=== PATIENT | female | born 1970 | race Caucasian/White ===

== ENCOUNTER 2019-11-20 07:11 | Day surgery (SDC) | payer BC ==
[~2019-11-20 07:11] MED LIST: Sodium Chloride 0.9% 10 ML SDV IV PRN; Sodium Chloride 0.9% 10 ML Syringe FLUSH PRN; Sodium Chloride 0.9% 2.5 ML Syringe FLUSH PRN
[2019-11-20] MEDS ORDERED: Lactated Ringers 1,000 ML IV SCH (07:45)
--- NOTE | 2019-11-20 08:35 | PCM.PREANE ---
Preanesthetic Assessment - Anesthesia/Transfusion/Family Hx Anesthesia History: Prior Anesthesia Without Reaction Family History of Anesthesia Reaction: No Transfusion History: No Prior Transfusion(s) Intubation History: Unknown - Review of Systems General: No Symptoms Pulmonary: No Symptoms Cardiovascular: No Symptoms Gastrointestinal: No Symptoms Neurological: No Symptoms Other: Reports: None - Physical Assessment NPO Status Date: 11/19/19 NPO Status Time: 21:00 Vital Signs: Last Vital Signs Temp 36.4 C 11/20/19 07:20 Pulse 77 11/20/19 07:20 Resp 16 11/20/19 07:20 BP 117/73 11/20/19 07:20 Pulse Ox 98 11/20/19 07:20 Height: 5 ft 3 in Weight: 59.421 kg ASA Class: 2 Mental Status: Alert & Oriented x3 Airway Class: Mallampati = 2 Dentition: Reports: Normal Dentition Thyro-Mental Finger Breadths: 3 Mouth Opening Finger Breadths: 3 ROM/Head Extension: Full Lungs: Clear to Auscultation, Normal Respiratory Effort Cardiovascular: Regular Rate, Regular Rhythm - Lab Values: Laboratory Last Values WBC 7.83 K/uL (4.0-11.0) 11/20/19 07:30 RBC 4.24 M/uL (4.30-5.90) L 11/20/19 07:30 Hgb 12.7 g/dL (12.0-16.0) 11/20/19 07:30 Hct 38.6 % (36.0-46.0) 11/20/19 07:30 MCV 91.0 fL (80.0-98.0) 11/20/19 07:30 MCH 30.0 pg (27.0-32.0) 11/20/19 07:30 MCHC 32.9 g/dL (31.0-37.0) 11/20/19 07:30 RDW Std Deviation 44.3 fl (28.0-62.0) 11/20/19 07:30 RDW Coeff of Sobeida 13 % (11.0-15.0) 11/20/19 07:30 Plt Count 283 K/uL (150-400) 11/20/19 07:30 MPV 11.20 fL (7.40-12.00) 11/20/19 07:30 Nucleated RBC % 0.0 /100WBC 11/20/19 07:30 Nucleated RBCs # 0 K/uL 11/20/19 07:30 HCG, Qual NEGATIVE (NEG) 11/20/19 07:30 - Allergies Allergies/Adverse Reactions: Allergies Allergy/AdvReac Type Severity Reaction Status Date / Time No Known Allergies Allergy Verified 11/17/19 12:04 - Blood Blood Available: No - Anesthesia Plan Pre-Op Medication Ordered: None - Acknowledgements Anesthesia Type Planned: General Anesthesia Pt an Appropriate Candidate for the Planned Anesthesia: Yes Alternatives and Risks of Anesthesia Discussed w Pt/Guardian: Yes Pt/Guardian Understands and Agrees with Anesthesia Plan: Yes PreAnesthesia Questionnaire HEENT History: Reports: None Cardiovascular History: Reports: None Respiratory History: Reports: Asthma (very mild) Gastrointestinal History: Reports: None Genitourinary History: Reports: None WEB PROJECT MANAGER History: Reports: Dysfunctional Uterine Bleeding Musculoskeletal History: Reports: None Neurological History: Reports: None Psychiatric History: Reports: None Endocrine/Metabolic History: Reports: Hypothyroidism Hematologic History: Reports: None Immunologic History: Reports: None Oncologic (Cancer) History: Reports: None Dermatologic History: Reports: None - Past Surgical History Head Surgeries/Procedures: Reports: None HEENT Surgical History: Reports: None Cardiovascular Surgical History: Reports: None Respiratory Surgical History: Reports: None GI Surgical History: Reports: Colonoscopy Female Surgical History: Reports: Breast Implant, D&C Other Female Surgeries/Procedures: ESSURE Endocrine Surgical History: Reports: Thyroidectomy Other Endocrine Surgeries/Procedures: partial thyroidectomy Neurological Surgical History: Reports: None Musculoskeletal Surgical History: Reports: None Oncologic Surgical History: Reports: None Dermatological Surgical History: Reports: None - SUBSTANCE USE Smoking Status *Q: Never Smoker Recreational Drug Use History: No - HOME MEDS Home Medications: Home Meds Albuterol Sulfate [Proair Hfa] 2 puff INH Q4H PRN 11/17/19 [History] Fluticasone/Vilanterol [Breo Ellipta 100-25 MCG Inhalation Kit] 1 inhalation INH ASDIRECTED PRN 11/17/19 [History] Levothyroxine [Synthroid] 50 mcg PO DAILY 11/17/19 [History] - CURRENT (IN HOUSE) MEDS Current Meds: Current Medications Lactated Ringer's (Ringers, Lactated) 1,000 mls @ 100 mls/hr IV ASDIRECTED MILENA Last Admin: 11/20/19 07:47 Dose: 100 mls/hr Sodium Chloride (Saline Flush) 10 ml FLUSH ASDIRECTED PRN PRN Reason: Keep Vein Open Sodium Chloride (Saline Flush) 2.5 ml FLUSH ASDIRECTED PRN PRN Reason: Keep Vein Open Sodium Chloride (Normal Saline) 10 ml IV ASDIRECTED PRN PRN Reason: IV Use
[2019-11-20] MEDS ORDERED: Lidocaine 2% 5 ML SDV ONE (08:51)
[2019-11-20] MEDS ORDERED: Ketorolac 30 MG/ML SDV ONE (08:51)
[2019-11-20] MEDS ORDERED: Ondansetron 4 MG/2 ML SDV ONE (08:51)
[2019-11-20] MEDS ORDERED: Midazolam 1 MG/ML 2 ML SDV ONE (08:51)
[2019-11-20] MEDS ORDERED: fentaNYL 100 MCG/2 ML SDV ONE (08:52)
[2019-11-20] MEDS ORDERED: Propofol 200 MG/20 ML SDV ONE (08:58)
--- NOTE | 2019-11-20 10:00 | PCM.OPNOTE ---
- General Post-Op/Procedure Note Date of Surgery/Procedure: 11/20/19 Operative Procedure(s): Diagnostic hysteroscopy with D&C, thermal endometrial ablation Findings: Normal endometrial cavity Pre Op Diagnosis: menorrhagia Post-Op Diagnosis: Same Anesthesia Technique: General LMA Primary Surgeon: Inessa Coon Pathology: endometrial curretings Fluid Replacement, Intraop: 1,200 EBL in mLs: 5 Complications: none known Condition: Stable Free Text/Narrative:: Dictation [id number]
--- NOTE | 2019-11-20 10:24 | PCM.POSTAN ---
POST ANESTHESIA ASSESSMENT - MENTAL STATUS Mental Status: Alert, Oriented - VITAL SIGNS Vital Signs: Last Vital Signs Temp 36.4 C 11/20/19 09:57 Pulse 69 11/20/19 10:17 Resp 9 L 11/20/19 10:17 BP 133/68 11/20/19 10:17 Pulse Ox 100 11/20/19 10:17 - RESPIRATORY Respiratory Status: Respiratory Rate WNL, Airway Patent, O2 Saturation Stable - CARDIOVASCULAR CV Status: Pulse Rate WNL, Blood Pressure Stable - GASTROINTESTINAL GI Status: No Symptoms - PAIN Pain Score: 0 - POST OP HYDRATION Hydration Status: Adequate & Stable - OBSERVATIONS Free Text/Narrative:: No anesthesia problems.
--- NOTE | 2019-11-20 10:49 | OR ---
SURGEON: Inessa Coon M.D. DATE OF PROCEDURE: 11/20/2019 PREOPERATIVE DIAGNOSIS: Menorrhagia. POSTOPERATIVE DIAGNOSIS: Menorrhagia. PROCEDURE: Diagnostic hysteroscopy with D and C, thermal endometrial ablation. PRIMARY SURGEON: Inessa Coon MD. ANESTHESIA: General LMA. ESTIMATED BLOOD LOSS: Less than 5 mL. COMPLICATIONS: None known. FINDINGS: Normal endometrial cavity. FLUIDS: 1200 mL of crystalloid. FLUID DEFICIT: 40 mL of saline with hysteroscope. DISPOSITION: The patient to PACU, stable; specimen to pathology. PROCEDURE DETAILS: Dai is a 49-year-old female who has ongoing difficulties with menorrhagia. She has permanent control, and at this time after discussing the options, she would like to proceed with surgical intervention in the form of endometrial ablation. Risks of procedure have been discussed. Proper consent obtained. The patient was then taken to the operating room where she underwent general LMA, was placed in modified dorsal lithotomy position, was prepped and draped in the usual sterile fashion. Bladder was drained. Time-out was performed. Speculum was introduced in the vagina. Anterior lip of the cervix was grasped with an Allis clamp. Hysteroscope was introduced in the endometrial cavity using normal saline as distention media. I was able to visualize left ostia, right ostia, fundus, lower uterine segment, endocervical canal. No intracavitary lesions were visualized and cavity appeared normal. Fluid deficit was approximately 40 mL. Hysteroscope was now removed. The cervix was gently dilated to 6 mm. A gentle curettage of endometrium was performed. Specimen to pathology. Using Mira device, the device was prepped according to early morning babysitter protocol, the cervix sounded to approximately 4 cm. The device was introduced into the endometrial cavity. Balloon insufflated, arms released. Integrity test was performed and passed successfully. This was followed by a 120-second ablative process. At the completion of this, the balloon was desufflated, the arms were involuted, and the device was removed from the endometrial cavity. Hemostasis appeared evident. All instruments removed from the vagina. Sponge count was correct. The patient will go to PACU in stable condition, specimen to pathology. HI / JENNY /[id number]
--- NOTE | 2019-11-20 10:59 | PCM48HPAN ---
Post Anesthesia Note - EVALUATION WITHIN 48HRS OF ANESTHETIC Vital Signs in Normal Range: Yes Patient Participated in Evaluation: Yes Respiratory Function Stable: Yes Airway Patent: Yes Cardiovascular Function Stable: Yes Hydration Status Stable: Yes Pain Control Satisfactory: Yes Nausea and Vomiting Control Satisfactory: Yes Mental Status Recovered: Yes Vital Signs: Last Vital Signs Temp 36.6 C 11/20/19 10:23 Pulse 69 11/20/19 10:23 Resp 9 L 11/20/19 10:23 BP 133/68 11/20/19 10:23 Pulse Ox 100 11/20/19 10:23 - COMMENTS/OBSERVATIONS Free Text/Narrative:: no anesthesia problems
== END 2019-11-20 10:58 | disposition home or self-care (01) ==
LOC: MW.SDS 07:11
PROVIDERS: ATTEND Obstetrics & Gynecology
DX: N92.0 Excessive and frequent menstruation with regular cycle (principal); J45.909 Unspecified asthma, uncomplicated; E03.9 Hypothyroidism, unspecified; Z79.51 Long term (current) use of inhaled steroids
CPT/HCPCS: 36415; 58563; 84703; 85027; J1885; J2001; J2250; J2405; J2704; J3010; J7120; 88305

== ENCOUNTER 2025-03-05 06:27 | Day surgery (SDC) | payer BC ==
[2025-03-05] MEDS ORDERED: Scopalamine 1mg/3day Transdermal Patch TOP ONE (06:30)
[2025-03-05] MEDS: Lactated Ringers 1,000 ML IV SCH (06:58)
[2025-03-05] MEDS ORDERED: Propofol 200 MG/20 ML SDV ONE (07:22)
[2025-03-05] MEDS ORDERED: fentaNYL 100 MCG/2 ML SDV ONE (07:22)
[2025-03-05] MEDS ORDERED: Midazolam 1 MG/ML 2 ML SDV ONE (07:23)
[2025-03-05] MEDS ORDERED: Lidocaine 1% 20 ML MDV ONE (07:24)
[2025-03-05] MEDS ORDERED: Bupivacaine 0.5% 10 ML SDV ONE (07:24)
[2025-03-05] MEDS ORDERED: Lidocaine 2% 5 ML SDV ONE (07:24)
[2025-03-05] MEDS ORDERED: Dexamethasone 4 MG/ML 5 ML MDV ONE (08:20)
[2025-03-05] MEDS ORDERED: Ondansetron 4 MG/2 ML SDV ONE (08:20)
[2025-03-05] MEDS ORDERED: ePHEDrine 50 MG/ML SDV ONE (08:30)
[2025-03-05] MEDS ORDERED: Lactated Ringers 1,000 ML IV SCH (08:45)
== END 2025-03-05 09:13 | disposition home or self-care (01) ==
LOC: MW.SDS 06:27
PROVIDERS: ATTEND Surgery
DX: C44.219 Basal cell carcinoma of skin of left ear and external auricular canal (principal); E03.9 Hypothyroidism, unspecified; Z79.890 Hormone replacement therapy; Z79.899 Other long term (current) drug therapy
CPT/HCPCS: 00300; J0665; J1100; J2003; J2250; J2405; J2704; J3010; J3490; J7120